=== PATIENT | male | born 1960 | race Asian ===

== ENCOUNTER 2017-01-05 01:02 | Emergency (ER) | payer OTHER ==
[2017-01-05 02:18] VITALS: BP 104/76; PULSE 70; TEMP 97.7; BMI 29.7
--- NOTE | 2017-01-05 03:21 | PDOC ---
History of Present Illness - General History Source: Patient Exam Limitations: No Limitations - History of Present Illness Initial Comments: CHIEF COMPLAINT: 56 y/o afebrile male with no significant PMH c/o mouth pain today. HISTORY OF PRESENT ILLNESS: The patient states he has allergies and his nose has been running. today the top of his mouth began to hurt. he denies f/c, cough, sore throat, n/v/d, CP, SOB, abd pain, back pain. he is taking prescription allergy meds for his symptoms. Vital signs on arrival are within normal limits. REVIEW OF SYSTEMS: GENERAL/CONSTITUTIONAL: No fever/chills. No weakness. No weight change. HEAD, EYES, EARS, NOSE AND THROAT: No change in vision. No ear pain or discharge. No sore throat. +mouth pain. MUSCULOSKELETAL: No joint or muscle swelling or pain. No neck or back pain. SKIN: No rash or easy bruising. NEUROLOGIC: No headache, vertigo, loss of consciousness, or loss of sensation. PHYSICAL EXAM: GENERAL: The patient is awake, alert, and fully oriented, in no acute distress. He is well appearing and ambulatory. HEAD: Normal with no signs of trauma EYES: Pupils equal, round and reactive to light, extraocular movements intact, sclera anicteric, conjunctiva clear. Posterior pharyngeal erythema. No tonsilar edema or exudate. No ulcerations or deformities to hard/soft palate. No trismus. Uvula midline. EXTREMITIES: Normal range of motion, no edema. NEUROLOGICAL: Normal speech, normal gait. SKIN: Warm, Dry, normal turgor, no rashes or lesions noted. <Annita Boogie - Last Filed: 01/05/17 03:44> <Dwight Lee - Last Filed: 01/05/17 07:00> - General Chief Complaint: Oral Ulcers Stated Complaint: MOUTH SWELLING Time Seen by Provider: 01/05/17 02:50 Past History - Psycho/Social/Smoking Cessation Hx Suicidal Ideation: No Smoking History: Never smoked Have you smoked in the past 12 months: No Information on smoking cessation initiated: No Hx Alcohol Use: No Drug/Substance Use Hx: No <Annita Boogie - Last Filed: 01/05/17 03:44> <Dwight Lee - Last Filed: 01/05/17 07:00> - Past Medical History Allergies/Adverse Reactions: Allergies Allergy/AdvReac Type Severity Reaction Status Date / Time No Known Allergies Allergy Verified 01/05/17 02:15 Home Medications: Ambulatory Orders NK [No Known Home Medication] 01/05/17 *Physical Exam - Vital Signs Last Vital Signs Temp Pulse Resp BP Pulse Ox 97.7 F 70 14 104/76 97 01/05/17 02:16 01/05/17 02:16 01/05/17 02:16 01/05/17 02:16 01/05/17 02:16 <Annita Boogie - Last Filed: 01/05/17 03:44> - Vital Signs Last Vital Signs Temp Pulse Resp BP Pulse Ox 97.7 F 70 14 104/76 97 01/05/17 02:16 01/05/17 02:16 01/05/17 02:16 01/05/17 02:16 01/05/17 02:16 <Dwight Lee - Last Filed: 01/05/17 07:00> Medical Decision Making - Medical Decision Making A/P: 56 y/o male with mouth pain, most likely secondary to seasonal allergies. Suggested he continue taking his allergy medications, gargle with liquid benadryl and spit, then gargle with warm salt water and spit. Suggested he eat only soft foods and f/u with his PCP if symptoms persist. Instructed him to return to the ER with any worsening or concerning symptoms. The patient verbalizes understanding of all instructions, has no further questions and is awaiting discharge. <Annita Boogie - Last Filed: 01/05/17 03:44> - Medical Decision Making 01/05/17 07:00 ED ATTENDING NOTE: I was available for consultation and review of the case and plan as needed. <Dwight Lee - Last Filed: 01/05/17 07:00> *DC/Admit/Observation/Transfer <Annita Boogie - Last Filed: 01/05/17 03:44> <Dwight Lee - Last Filed: 01/05/17 07:00> Diagnosis at time of Disposition: Mouth pain Seasonal allergies Qualifiers: Allergic rhinitis trigger: unspecified Qualified Code(s): J30.2 - Other seasonal allergic rhinitis - Discharge Dispostion Disposition: HOME Condition at time of disposition: Good - Referrals Referrals: Allie He MD [Primary Care Provider] - - Patient Instructions Printed Discharge Instructions: DI for Mouth Pain, Allergic Rhinitis Additional Instructions: Discharge Instructions: -Continue taking your allergy medications as prescribed -Gargle with liquid benadryl and spit out; then gargle with warm salt water and spit out. do this 3 times per day -Follow up with your doctor within 1 week -return to the ER with any worsening or concerning symptoms.
== END 2017-01-05 03:47 | disposition home or self-care (01) ==
LOC: JER 01:02
DX: J30.2 Other seasonal allergic rhinitis (principal)
CPT/HCPCS: 99281-25

== ENCOUNTER 2023-06-24 05:04 | Day surgery (SDC) | payer OTHER ==
[2023-06-22 14:49] VITALS: BMI 28.1
[2023-06-24 08:45] VITALS: TEMP 97.8
[2023-06-24 09:07] VITALS: BP 107/58; PULSE 60; RESP 17
== END 2023-06-24 09:30 | disposition home or self-care (01) ==
LOC: JASU-ENDO 05:04
PROVIDERS: ATTEND Internal Medicine Gastroenterology
PROC: 0DBL8ZX Excision of Transverse Colon, Via Natural or Artificial Opening Endoscopic, Diagnostic (ICD-10-PCS; 2023-06-24)
PROC: 0DBN8ZX Excision of Sigmoid Colon, Via Natural or Artificial Opening Endoscopic, Diagnostic (ICD-10-PCS; 2023-06-24)
PROC: 0DBP8ZX Excision of Rectum, Via Natural or Artificial Opening Endoscopic, Diagnostic (ICD-10-PCS; 2023-06-24)
PROC: 0DBM8ZX Excision of Descending Colon, Via Natural or Artificial Opening Endoscopic, Diagnostic (ICD-10-PCS; 2023-06-24)
PROC: 0DBK8ZX Excision of Ascending Colon, Via Natural or Artificial Opening Endoscopic, Diagnostic (ICD-10-PCS; principal; 2023-06-24 08:00)
DX: Z12.11 Encounter for screening for malignant neoplasm of colon (principal); D12.2 Benign neoplasm of ascending colon; D12.3 Benign neoplasm of transverse colon; D12.4 Benign neoplasm of descending colon; D12.5 Benign neoplasm of sigmoid colon; D12.8 Benign neoplasm of rectum; K63.5 Polyp of colon; K62.1 Rectal polyp; K64.8 Other hemorrhoids
CPT/HCPCS: 88305-TC

== ENCOUNTER 2024-08-08 04:33 | Day surgery (SDC) | payer OTHER ==
[2024-07-31 14:47] VITALS: BMI 28.5
[2024-08-08 08:40] VITALS: TEMP 98.3
[2024-08-08 08:52] VITALS: RESP 18
[2024-08-08 09:06] VITALS: BP 110/71; PULSE 60
== END 2024-08-08 09:35 | disposition home or self-care (01) ==
LOC: JASU-ENDO 04:33
PROVIDERS: ATTEND Internal Medicine Gastroenterology
PROC: 0DBL8ZX Excision of Transverse Colon, Via Natural or Artificial Opening Endoscopic, Diagnostic (ICD-10-PCS; 2024-08-08)
PROC: 0DBP8ZX Excision of Rectum, Via Natural or Artificial Opening Endoscopic, Diagnostic (ICD-10-PCS; 2024-08-08)
PROC: 0DBL8ZX Excision of Transverse Colon, Via Natural or Artificial Opening Endoscopic, Diagnostic (ICD-10-PCS; 2024-08-08)
PROC: 0DBP8ZX Excision of Rectum, Via Natural or Artificial Opening Endoscopic, Diagnostic (ICD-10-PCS; principal; 2024-08-08 08:00)
DX: Z12.11 Encounter for screening for malignant neoplasm of colon (principal); D12.3 Benign neoplasm of transverse colon; D12.8 Benign neoplasm of rectum; K64.8 Other hemorrhoids; Z86.0100 Personal history of colon polyps, unspecified
CPT/HCPCS: 88305-TC